=== PATIENT | female | born 1985 | race Caucasian/White ===

== ENCOUNTER 2020-02-24 04:27 | Observation (INO) | payer MEDICAID, SELFPAY ==
[2020-02-24] VITALS (13 sets, daily range): BP systolic 92–139; BP diastolic 57–98; PULSE 80–114; RESP 14–18; TEMP 36.7–37.9; O2SAT 95–100; BMI 22.1; BMI 23.1
--- NOTE | 2020-02-24 | APP_PTH ---
PATIENT: CHRISTEL REBOLLEDO LOC: PCU U#:[id number] AGE/SX: 34/F ROOM: [facility] RE02/24/[address]: Dr. Farida Bennett MD : 1985 BED: 1 DIS: 02/24/2020 SPEC #: [id number] RECD: 02/24/20 12:01 STATUS: APURVA REQ #: [id number] ENEDINA: 02/24/20 00:[address]: Farida Bennett DEPT: SURGICAL PATHOLOGY RECD BY: Sherman Mcdowell ENTERED: 02/25/20 12:22 SP TYPE: APPENDIX OTHR DR: Dr. Ashly Romero MD Tissues: Appendix, NOS Procedures: Surgery Specimen Level III HEADER OPERATION: Laparoscopic appendectomy PRE-OP DIAGNOSIS: Acute appendicitis TISSUE SUBMITTED: Appendix MICROSCOPIC DIAGNOSIS Appendix, appendectomy: Acute appendicitis and periappendicitis. TATYANA:justice 02/26/20 MICROSCOPIC DESCRIPTION Slides are reviewed. GROSS DESCRIPTION Received is one container labeled with the patient's name and designated appendix. The specimen consists of a disrupted appendix with attached periappendiceal adipose tissue measuring 8 cm in length and up to 1 cm in diameter. The tip of the appendix could not be identified. Two detached fragments of appendix are also noted each measuring 1 cm in length and 0.9 cm in diameter. The serosa is unremarkable. The lumen does not contain any fecalith. Nurse Practitioner Hospitalist sections are submitted in four cassettes as follows: 1 - possible tip, 2??detached portion of the appendix, 3 & 4 - rest of the appendix, appendix is submitted in entirety. / SJ:justice 02/25/20 TC:2 CPT: 80624
--- NOTE | 2020-02-24 04:34 | CT_ITS ---
STUDY: CT ABDOMEN AND PELVIS WITHOUT CONTRAST REASON FOR EXAM: Female, 34 years old. DIFFUSE ABD PAIN X 2 DAYS/VOMITING. Hx of csection x 4, tummy tuck. RADIATION DOSAGE (If Supplied By Facility): CTDIvol = ( 12.51 ) mGy, DLP = ( 571.46 ) mGycm TECHNIQUE: Transaxial images were obtained from the dome of the diaphragm to the symphysis pubis without oral contrast, and without intravenous contrast. Sagittal and coronal images were reconstructed. Individualized dose optimization techniques were used for this CT. COMPARISON: None. FINDINGS: The visualized lung bases are unremarkable. The visualized portions of the heart are within normal limits. There are breast implants. There is a small cyst in the left lobe of the liver.. Normal gallbladder and extrahepatic biliary system. Normal spleen. Normal pancreas. Normal bilateral adrenal glands. Normal right kidney. Normal left kidney. Normal visualized stomach. Normal small intestine. There is mild mural thickening of the cecum at the base of the appendix. Otherwise normal colon. The appendix is visualized on axial images 77-87. There is an appendicolith in the base of the appendix and the appendix is fluid distended, with diameter of 1.5 cm. There is mild periappendiceal fat infiltration, consistent with acute appendicitis. There is no demonstrated periappendiceal abscess or free intraperitoneal air to suggest appendiceal rupture. Normal abdominal aorta. Normal inferior vena cava. Normal retroperitoneum. Normal urinary bladder. There is either a very diminutive uterus or there has been a previous hysterectomy and there is a residual cervical stump. Normal abdominal wall. Normal osseous structures. CT/Abdomen/Pelvis W IV Cont ONLY IMPRESSION: Acute appendicitis. No evidence for appendiceal rupture. N.B. : The above information has been verbally conveyed by Wesley Gao MD to Dr. Fariha MD, on 02/24/2020 05:15:41 (ET). Electronically Signed: Wesley Gao MD at 5:19 EDT , Service support ,
--- NOTE | 2020-02-24 04:34 | ED.VIS.GI ---
History of Present Illness Chief Complaint: Abd Pain Informant: Patient - Abdominal Pain/Flank Pain Onset: Days - 2 Context: Gradual Onset Timing: Continuous Quality: Aching Location: RLQ - initially, now diffuse Current Severity: Severe Maximum Severity: Severe Worsened by: Nothing Relieved by: Nothing - Nausea/Vomiting/Emesis GI Symptom: Nausea, Vomiting Onset: Today Quality: Nonbilious. Negative for: Blood streaks, Coffee ground, Hematemesis - Diarrhea/Melena/Hematochezia GI Symptom: Diarrhea. Negative for: Melena, Hematochezia Onset: Yesterday Stool Quality: Loose Severity: Moderate Associated Symptoms: Negative for: Dysuria, Frequency, Hematuria, Urgency Narrative: Patient states when this pain started 2 days ago it was gradual in onset and mild. It has been constant and progressively worsening throughout the last day or 2, to the point of now being diffuse throughout her entire abdomen, and causing her to vomit. She states initially when it started, it felt like an ovarian discomfort, which she thinks because she has a history of endometriosis and polycystic ovarian disease. There was no sudden onset, and no sudden in the worsening of it. She states usually with her endometriosis, she had been able to take ibuprofen and bear it, she was doing that initially but it continued getting worse regardless. She had a prior hysterectomy, and has had multiple other abdominal surgeries, mostly COMPLIANCE ATTORNEY in nature, and a tummy tuck. None of them of been recent. She denies any fevers, dyspnea, chest pain, cough, urinary symptoms, vaginal discharge or bleeding. - Past Medical History (1) PCOS (polycystic ovarian syndrome) Status: Chronic (2) Endometriosis Status: Chronic Past Medical History - Allergies and Home Meds Allergies/Adverse Reactions: Allergies BLOOD THINNERS Allergy (Uncoded 02/24/20 04:32) Other CAVERNOUS ANGIOMAS Primary Care Physician: Ashly Romero MD [Primary Care Provider] - Surgical History: hysterectomy, - - c-sections, D&Cs, tummy tuck Lives: With Family Smoking Status: Never smoker Review of Systems General: Denies: Chills, Fever, Sweats Eyes: Denies: Visual changes - bilaterally, Diplopia ENT: Denies: Rhinorrhea, Sore throat Cardiovascular: Denies: Chest pain, Palpitations Respiratory: Denies: Dyspnea, Cough, Dyspnea on exertion Gastrointestinal: Reports: Abdominal pain, Nausea, Vomiting. Denies: Diarrhea, Melena, Hematochezia Genitourinary: Denies: Dysuria, Hematuria, Frequency Musculoskeletal: Denies: Back pain, Swelling, Extremity Pain Skin: Denies: Rash, Wounds Neurological: Denies: Headache, Weakness, Numbness Physical Exam Vital Signs/Narrative: Vital Signs Temp Pulse Resp BP Pulse Ox 02/24/20 04:28 98.1 F 100 16 139/98 H 100 Inital Vital Signs reviewed: Yes General: Well nourished, Well developed, Acute Distress - mild, painful. Negative for: Obese Head: Normocephalic, Atraumatic Eyes: Perrl, EOMI ENT: Moist mucous membranes, No rhinorrhea Neck: Supple, Nontender Cardiovascular: Regular rate, Regular rhythm, No murmurs, Tachycardia - mild Respiratory: No distress, CTA bilaterally, Chest nontender Abdomen: Soft, Nondistended, Normal bowel sounds, No masses, Tender - diffusely, nonfocal. Negative for: Guarding, Rebound tenderness, Pulsatile mass Back: Nontender, Normal Inspection. Negative for: CVA tenderness Extremities: Nontender, No edema. Negative for: Calf Tenderness Skin: Normal color, No rash, No Trauma Neurological: Alert, Oriented x3, Cranial nerves II-XII grossly intact, Normal Strength, Normal Sensation, Normal Gait Psychological: Normal affect, Normal Mood Diagnostic/Tx/Re-eval Laboratory Results 02/24/20 02/24/20 02/24/20 04:40 04:40 04:40 WBC 17.4 H RBC 4.31 Hgb 14.0 Hct 40.9 MCV 94.9 MCH 32.5 H MCHC 34.2 RDW Std Deviation 40.9 RDW Coeff of Shirley 11.7 Plt Count 308 MPV 9.8 Immature Gran % (Auto) 0.500 Neut % (Auto) 84.3 H Lymph % (Auto) 6.4 L Nash % (Auto) 8.3 Eos % (Auto) 0.2 Baso % (Auto) 0.3 Absolute Neuts (auto) 14.7 H Absolute Lymphs (auto) 1.12 Nucleated RBC % 0 Sodium 138 Potassium 3.1 L Chloride 106 Carbon Dioxide 24.0 Anion Gap 8 BUN 7 Creatinine 0.75 Estim Creat Clear Calc 85.78 Est GFR (MDRD) Af Amer 112 Est GFR (MDRD) Non-Af 93 BUN/Creatinine Ratio 9.3 L Glucose 123 H Calcium 8.9 Total Bilirubin 1.10 H AST 21 ALT 21 Alkaline Phosphatase 73 Total Protein 7.6 Albumin 4.2 Globulin 3.4 Albumin/Globulin Ratio 1.2 Lipase 127 Urine Color Yellow Urine Clarity Sl. Cloudy Urine pH 8.0 Ur Specific [place] 1.010 Urine Protein 30 H Urine Glucose (UA) Normal Urine Ketones 150 H Urine Occult Blood Negative Urine Nitrite Negative Urine Bilirubin Negative Urine Urobilinogen Normal Ur Leukocyte Esterase 25 H Urine RBC 0-5 SEEN Urine WBC 0-5 SEEN Ur Squamous Epith Cells 0 SEEN Urine Bacteria 1+ Urine Mucus 0 SEEN - Medical Decision Making Patient was given Zofran and morphine, as well as a dose of Toradol. She is doing much better on reevaluation. CT shows acute appendicitis with a 1.5 cm nonperforated appendix with appendicolith. She has an associated white blood count 17.5. Discussed with surgery Dr. Bennett, patient does not have peritoneal signs, and will be scheduled for surgery and admitted to medical surgical floor. Empiric Zosyn ordered and given in the emergency department. Patient is clinically and hemodynamically stable at admission. ED Disposition - Plan for ED Patient: Disposition: Acute Care [facility] Diagnosis: Acute appendicitis Referrals: Ashly Romero MD [Primary Care Provider] -
[2020-02-24] MEDS: Morphine 4 MG/ML Syringe IV (04:42)
[2020-02-24] MEDS: Ondansetron 4 MG/2 ML Vial IV (04:43)
[2020-02-24] MEDS: Ketorolac 30 MG/ML Syringe IV (04:43)
[2020-02-24] MEDS: 0.9% Normal Saline 1,000 ML 1000 ML IV (04:44)
[2020-02-24 04:55] LABS: Mucous, Urine 0 SEEN /hpf (<or=2+); Squamous Epithelial Cells - UA 0 SEEN /hpf (5-10)
[2020-02-24 04:58] LABS: Color, Urine Yellow (Yellow); Glucose, Dipstick Normal (Normal); Leukocyte Esterase-Dipstick 25 /ul (Negative); Nitrite-Dipstick Negative (Negative); Occult Blood-Urine Negative /ul (Negative); Protein-Dipstick 30 mg/dl (Negative); Urine Bilirubin Dipstick Negative (Negative); Urine Clarity Sl. Cloudy (Clear); Urine Urobilinogen Normal (Normal)
[2020-02-24 05:00] LABS: Absolute Lymphocyte Count 1.12 X10^3/uL (0.83-4.51); Absolute Neutrophil Count 14.7 X10^3/uL (2.0-7.7); Basophil# 0.05 X10^3/uL; Basophil% 0.3 % (0-1); Eosinophil# 0.03 X10^3/uL; Eosinophils% 0.2 % (0-5); Hematocrit 40.9 % (37-47); Lymphocyte # 1.12 X10^3/ul (4.0); Lymphocyte % 6.4 % (19-41); Mean Corp Hgb Conc 34.2 g/dL (32-36); Mean Corpuscular Hgb 32.5 pg (27.0-32.0); Mean Corpuscular Volume 94.9 fL (81-99); Mean Platelet Vol. 9.8 fl (6.2-12.0); Monocyte# 1.44 X10^3/uL; Monocyte% 8.3 % (0-10); NRBC Flagged by Analyzer 0 % (0-5); Neutrophil # 14.65 X10^3/uL (2.7-7.7); Neutrophil % 84.3 % (47-70); Platelet Count 308 K/mm3 (150-450); RBC Distribution Width CV 11.7 % (11.6-14.6); RBC Distribution Width SD 40.9 fl (35.1-43.9); Red Blood Count 4.31 M/mm3 (4.2-5.4); White Blood Count 17.4 K/mm3 (4.4-11.0)
[2020-02-24 05:13] LABS: Ketone-Dipstick 150 mg/dl (Negative)
[2020-02-24 05:15] LABS: Bacteria 1+ /hpf (None Seen); Red Blood Cells-Urine 0-5 SEEN /hpf (0-5); White Blood Cells 0-5 SEEN /hpf (0-5)
[2020-02-24 05:16] LABS: ALB/GLOB Ratio 1.2 RATIO (0.9-2.4); AST(SGOT) 21 U/L (15-37); Alanine Aminotransfer ALT/SGPT 21 U/L (13-56); Albumin, Serum 4.2 g/dL (3.2-5.0); Alkaline Phosphatase 73 U/L (45-117); Anion Gap 8 (5-15); BUN 7 mg/dL (7-18); BUN/Creat Ratio 9.3 RATIO (10-20); Calcium,Total 8.9 mg/dL (8.5-10.1); Chloride 106 mmol/L (98-107); Creatinine, Serum 0.75 mg/dL (0.55-1.02); EST Glomerular Filtration Rate 93 mL/min (>60); Est Glom Filt Rate - Afr Amer 112 mL/min (>60); Estimated Creatinine Clearance 85.78 ml/min; Globulin 3.4 g/dL (2.2-4.2); Glucose 123 mg/dL (74-106); Lipase 127 U/L (73-393); Potassium 3.1 mmol/L (3.5-5.1); Protein, Total 7.6 g/dL (6.4-8.2); Sodium Level 138 mmol/L (136-145)
[2020-02-24] MEDS: Lactated Ringers 1,000 ML 125 ML IV (06:51)
--- NOTE | 2020-02-24 07:29 | PCM.HP.BLA ---
History and Physical Date of Admission: 02/24/20 Chief Complaint: abdominal pain History of Present Illness: 34 y/o WF presents with abdominal pain for the past two days. Initially she noted this in the right lower quadrant but it has become more diffuse and generalized. Has had nausea and emesis. Has had some diarrhea. She thought it may have been gynecological, hx of endometriosis, and therefore tried to ignore it. Denies fevers. Evaluation in the ED - WBC 17.4K with left shift of differential CT scan - The appendix is visualized on axial images 77-87. There is an appendicolith in the base of the appendix and the appendix is fluid distended, with diameter of 1.5 cm. There is mild periappendiceal fat infiltration, consistent with acute appendicitis. There is no demonstrated periappendiceal abscess or free intraperitoneal air to suggest appendiceal rupture Past Medical History: endometriosis cavernous hemangiomas of cerebrum migraine headaches Past Surgical History: Tonsillectomy csections wisdom teeth surgery hysterectomy D&C umbilical hernia repair/tummy tuck bilateral breast augmentation Medications: eletriptan atarax claritin zofran prn paxil phenergan aldactone Allergies: cannot take blood thinners due to cavernous hemangiomas Social history: TOB use denies Review of Systems: General - denies fevers Cardiovascular denies chest pain, denies history of heart attack Pulmonary denies shortness of breath, denies coughing up blood Gastrointestinal as per HPI Neurological has migraine headaches, has known cavernous hemangiomas Genitourinary denies burning with urination, denies blood in urine Hematological denies spontaneous/prolonged bleeding Skin denies open non healing wounds Musculoskeletal denies history of fractures, denies arthritis Endocrine denies diabetes Psychological denies hallucinations Physical examination: Vital signs Temp 98.1F HR 100 BP 109/75 RR 16 General WD/WN WF in no apparent distress, alert and oriented, not septic appearing HEENT Normocephalic. EOM intact with sclera clear and no icterus noted. Neck is supple with no jugular venous distention noted. Trachea is midline. Lungs no labored breathing noted, such as retractions. No cough heard. Heart regular. Abdomen soft but tender in right lower quadrant with rebound. Extremities no calf tenderness noted. No pitting edema noted. Genitourinary/Rectal deferred Skin normal skin integrity. Neurological no focal deficits noted. Psychological normal affect, patient is calm and appropriate Impression: abdominal pain leukocytosis appendicitis by CT scan Discussion/Plan: I have discussed the above with the patient. I have offered the patient the procedure of laparoscopic appendectomy I have explained the procedure to the patient. I have counseled the patient as to the risks of the procedure, including but not limited to: infection, bleeding, injury to any blood vessels/nerves, scar tissue, injury to any intraabdominal organs, injury to kidney/ureters, injury to bowel/bladder,intraabdominal abscess/bleeding, hernias at incisional sites, wound infections, possible open procedure, complications of anesthesia, postoperative pneumonia/cardiac problems/blood clots etc. the patient understands. She wishes to proceed I have answered all questions to the patient?s satisfaction and the patient has no further questions.
[2020-02-24] MEDS: Potassium Chloride 10mEq/100mL 10 MEQ/100 ML IV.SOLN. 100 MEQ IV BOLUS ×2 (08:43→10:18)
[2020-02-24] MEDS: Morphine 2 MG/ML Syringe IV ×2 (08:55→13:27)
[2020-02-24] MEDS: 0.9% Saline Lock 10 ML Syringe IV ×2 (08:55→13:28)
--- NOTE | 2020-02-24 09:48 | NURSING ---
verbal report given to selin
--- NOTE | 2020-02-24 10:19 | DCINST_ITS ---
Discharge Diet: No Restrictions - avoid carbonated beverages for a couple of days Discharge Activity: Return to Normal Activity, May not drive while taking narcotic pain medications. Return to work on:: 03/10/20 Lifting Restrictions: no lifting greater than 10 pounds for two weeks Additional Activity Instructions:: walking/ambulation is encouraged. may climb stairs Call your doctor if your incision/area has: Continuous Slow Oozing, Foul Smelling Discharge Call your doctor if you observe: Fever of 101 or Higher Additional Dressing/Incision Instructions:: leave dressings in place. May get wet in shower. do not soak - no tub baths/swimming Additional Instructions: recommended pain medication regimen can take 650 mg acetaminophen (Tylenol) then in three to four hours can take 600 mg ibuprofen (Motrin), then in 3-4 hours can take 650 mg acetaminophen, then in three to four hours can take 600 mg ibuprofen and so on for 2-3 days take narcotic pain medication for pain not controlled with above and/or at night to help you sleep Medications to take at Discharge Ondansetron [Zofran Odt] 4 mg PO Q8H PRN PRN #10 tablet 08/06/16 Paroxetine HCl [Paxil] 10 mg PO DAILY 08/06/16 Spironolactone [Aldactone] 25 mg PO DAILY 08/06/16 HydrOXYzine [Atarax] 25 mg PO BID PRN PRN #12 tablet 08/07/16 proMETHazine tablet [Phenergan] 25 mg PO Q6H PRN PRN #10 tablet 08/07/16 Eletriptan Hydrobromide [Eletriptan HBr] 40 mg PO Q2H PRN PRN 02/24/20 Hydrocodone/Acetaminophen [[place] 5-325 Tablet] 1 ea PO Q8 PRN 4 Days #12 tab 02/24/20 Loratadine [Claritin] 10 mg PO DAILY PRN PRN 02/24/20 Allergies/Adverse Reactions: Allergies BLOOD THINNERS Allergy (Uncoded 02/24/20 10:09) Hx Cavernous Hemangiomas of cerebrum CAVERNOUS ANGIOMAS The following prescriptions were given: Hydrocodone/Acetaminophen [[place] 5-325 Tablet] 1 ea PO Q8 PRN 4 Days #12 tab PRN Reason: Pain Score 4-10/10 Transmission Status: Received by [facility] Primary Care Physician: Ashly Romero MD [Primary Care Provider] - Test Results: Test results from this visit will be discussed in further detail at your follow- up appointment, if applicable. Please Follow Up With: Farida Bennett MD - call When: will be set up by office for a telehealth visit
--- NOTE | 2020-02-24 10:29 | PCM.OPRPT ---
Report of Operation Date of Procedure: 02/24/20 Pre-Operative Diagnosis: acute appendicitis Post-Operative Diagnosis: same Surgery/Procedure Performed:: laparoscopic appendectomy Description of Surgical Findings:: dilated appendix - no ruptured, cloudy fluid in the pelvis - aspirated and irrigated out Type of Anesthesia:: General Anesthesiologist: Renny Weiss Specimen's removed: appendix Drains: none Estimated Blood Loss (mL): < 10 ml Fluids Replaced: 700 ml RL Description of Procedure: After informed consent was obtained, the patient was brought into the Operating Room. Appropriate time out protocol was followed. She was then placed in the supine position on the operating table. The patient was then placed under general anesthesia. The patient?s abdomen was then prepped with a sterile surgical skin preparation and sterile surgical drapes were placed. The infraumbilical skin fold was grasped with penetrating clamps and the skin and subcutaneous tissues were infiltrated with 0.25% marcaine with epinephrine. A skin incision was then made. A Veress needle was then inserted into the intraabdominal cavity and checked to be in the proper position with a normal saline drop test. A CO2 pneumoperitoneum was then created. Once this was achieved, the Veress needle was removed and a 5 mm trocar was placed in its stead. A 5 mm laparoscope was then inserted into the trocar. Careful examination of the intraabdominal contents was then done. There was no evidence of injury to any internal organs from placement of the Veress needle or the trocar. Under direct visualization, a 12mm suprapubic trocar and a 5mm just left of midline trocar was then placed into the intraabdominal cavity. The skin and subcutaneous tissues at these sites were first infiltrated with 0.25% marcaine with epinephrine. Attention was then directed to the right lower quadrant. The appendix was visualized. It was grossly distended and surrounding by inflammatory adhesions of omentum. This was taken down and by blunt dissection. There was no evidence of perforation, though there was cloudy peritoneal fluid. The mesentery of the appendix was taken down by cauterizing the tissue from the free edge to the base of the appendix with the Harmonic scalpel. Once the base of the appendix was freed of surrounding tissues, then the linear gastrointestinal stapling device was brought into the abdominal cavity via the 12mm port and placed across the base of the appendix. The stapling device was fired, thus stapling across the base of the appendix and transecting it simultaneously. The appendix was then placed in an Endobag and this was brought out through the suprapubic trocar. The appendix was then forwarded to Pathology for analysis. The appendiceal stump was carefully examined. There was slight oozing for which surgicel and pressure were applied. Then there was no evidence of any active bleeding or fecal leakage. The surrounding tissues were also examined and there was no evidence of any active bleeding or fecal/bile leakage. The peritoneal fluid was irrigated and aspirated out. The intraabdominal cavity was examined and there was no evidence of further inflammation or tissue abnormality. There was no evidence of any peritoneal fluid. The CO2 pneumoperitoneum was released and all trocars were removed intact. The suprapubic fascia was reapproximated with a figure-of-8 vicryl suture. All skin incisions were reapproximated with monocryl suture. Cavilon and steristrips were applied to reinforce skin closure and proper sterile dressings were placed. The patient was then extubated and brought to the Recovery Room in stable condition. - Complications none noted - Admit VTE Documentation VTE Present on Admission: Yes VTE Mechan Device Prophylaxis: SCD's
[2020-02-24] MEDS: Cefazolin 2 GM in 0.9% Normal Saline 100 ML IV (10:30)
[2020-02-24] MEDS: Bupiv/Epi 0.25% 30 ML Vial (11:28)
[2020-02-24] MEDS: HYDROcodone Bitartrate/Apap 5/325 Tablet PO (17:33)
--- NOTE | 2020-02-24 17:39 | NURSING ---
no changes noted to incision/dressing. voiding qs. teaching completed.
== END 2020-02-24 14:53 | disposition home or self-care (01) ==
LOC: ED 05:21 → PCU 07:15
PROVIDERS: Admitting Provider Surgery; Emergency Provider Emergency Medicine; PCP Internal Medicine; Visit Provider Surgery
PROC: 0DTJ4ZZ Resection of Appendix, Percutaneous Endoscopic Approach (ICD-10-PCS; CPT 44970; principal; 2020-02-24 09:55)
DX: K35.80 Unspecified acute appendicitis (principal); F41.9 Anxiety disorder, unspecified; F32.9 Major depressive disorder, single episode, unspecified; Z79.899 Other long term (current) drug therapy; E28.2 Polycystic ovarian syndrome; G43.909 Migraine, unspecified, not intractable, without status migrainosus
CPT/HCPCS: 44970; 74177; 80053; 81001; 83690; 85025; 88304; 96361; 96365; 96375; 99218; 99284; J7030; J7050; J7120; Q9967; A4216; G0378; J2405

== ENCOUNTER 2023-01-12 17:57 | Emergency (ER) | payer MEDICAID, SELFPAY ==
[2023-01-12 17:58] VITALS: BP 166/118; PULSE 118; RESP 16; TEMP 36.4; O2SAT 99; BMI 25.0
[2023-01-12 20:16] VITALS: BP 124/96; BP 133/91; BP 133/96; PULSE 100; PULSE 76; PULSE 89
--- NOTE | 2023-01-12 20:16 | EDS_ITS ---
HPI History of Present Illness Chief Complaint: Hypertension Narrative Narrative: 37-year-old female presenting with near syncopal event. She states that earlier today she thought she was going to blackout. She states he started seeing spots. She felt lightheaded. She felt palpitations and chest tightness. She states he has a history of anxiety but she does not feel she was that anxious. She does not have any cardiac history. No history of DVT/PE. She does not have any current risk factors. She states she does not have any concern for . Patient does states she has a long-term history blood pressure spikes.. She states has been going on for a year. Has been keeping a diary. Most of her blood pressure is normal. Today when she had the symptoms she decided to check her blood pressure and her blood pressure was in the 160s over 110 range. Patient states the second 1 she took was 150 systolic. Patient is not on any blood pressures controlled medicine. [facility] Medical History Cavernous angioma History of frequent headaches PCOS (polycystic ovarian syndrome) Home Medications ondansetron 4 mg disintegrating tablet 4 mg PO Q8H PRN PRN Nausea ##10 08/06/16 [Rx Last Taken Unknown] paroxetine HCl 10 mg tablet (Paxil) 10 mg PO DAILY depression 08/06/16 [History Last Taken Unknown] spironolactone 25 mg tablet 25 mg PO DAILY Check with primary doctor 08/06/16 [History Last Taken Unknown] Hydroxyzine [Atarax] 25 mg PO BID PRN PRN Anxiety ##12 08/07/16 [Rx Last Taken Unknown] promethazine 25 mg tablet 25 mg PO Q6H PRN PRN Nausea ##10 08/07/16 [Rx Last Taken Unknown] eletriptan 40 mg tablet 40 mg PO Q2H PRN PRN Migraine Symptoms 02/24/20 [History Last Taken 02/19/20 08:00] loratadine 10 mg capsule 10 mg PO DAILY PRN PRN Allergies 02/24/20 [History Last Taken Unknown] lorazepam 0.5 mg tablet 0.5 mg PO 07/13/21 [History Last Taken Unknown] Allergy/AdvReac Type Severity Reaction Status Date / Time BLOOD THINNERS Allergy Hx Uncoded 01/12/23 17:58 Cavernous Hemangiomas of cerebrum Family History Father Cavernous angioma Sister Cavernous angioma Anxiety Depression Brother Cavernous angioma Anxiety Depression Seizures Mother Hypertension Surgical History History of abdominoplasty History of appendectomy History of breast augmentation History of section History of dilation and curettage History of hysterectomy History of tonsillectomy Social History Smoking Status: Never smoker alcohol intake: current alcohol intake frequency: a few times a week Alcohol type: wine substance use type: does not use what type of physical activity do you participate in: running and yoga frequency: 3-4 times per week ROS ROS ED Constitutional Constitutional ED: Denies chills, fever(s) or sweats Eyes Eyes: Reports other Details: Spots in vision ; Denies blurry vision or change in vision ENT ENT ED: Denies ear pain or sore throat Cardiovascular Cardiovascular: Reports chest pain and palpitations; Denies racing heartbeat Respiratory/Chest Respiratory/Chest: Denies cough, dyspnea or sputum Gastrointestinal Gastrointestinal: Denies abdominal pain, constipation, diarrhea, nausea or vomiting Genitourinary Genitourinary ED: Denies dysuria, hematuria or urinary frequency Musculoskeletal Musculoskeletal: Denies arthralgias, myalgias or neck pain Integumentary Denies abscess, Abrasions or rash Neurologic Neurologic: Reports headache(s); Denies paresthesias or weakness Psychiatric Psychiatric: Denies anxiety, depression, suicidal ideation or suicidal thoughts Endocrine Endocrinology: Denies polydipsia or polyuria EXAM Physical Exam Const Vital Signs: 01/12/23 17:58 01/12/23 19:48 01/12/23 20:16 Temperature 97.6 F L Temperature Source Temporal Pulse Rate 118 H Pulse Rate [Lying] Pulse Rate [Sitting (for 1 minute prior to obtaining)] Pulse Rate [Standing (for 1 minute prior to obtaining)] Respiratory Rate 16 Respiratory Effort Normal Non-Labored Respiratory Pattern Normal Blood Pressure 166/118 H Blood Pressure [Lying] Blood Pressure [Sitting (for 1 minute prior to obtaining)] Blood Pressure [Standing (for 1 minute prior to obtaining)] Blood Pressure Mean 134 Blood Pressure Mean [Lying] Blood Pressure Mean [Sitting (for 1 minute prior to obtaining)] Blood Pressure Mean [Standing (for 1 minute prior to obtaining)] Pulse Ox 99 Oxygen Delivery Method Room Air Room Air 01/12/23 21:00 01/12/23 20:16 01/12/23 22:38 Temperature Temperature Source Pulse Rate 72 Pulse Rate [Lying] 76 Pulse Rate [Sitting (for 1 minute prior to obtaining)] 89 Pulse Rate [Standing (for 1 minute prior to obtaining)] 100 Respiratory Rate 21 H Respiratory Effort Respiratory Pattern Blood Pressure 134/96 H 124/96 H Blood Pressure [Lying] 133/91 H Blood Pressure [Sitting (for 1 minute prior to obtaining)] 133/96 H Blood Pressure [Standing (for 1 minute prior to obtaining)] 124/96 H Blood Pressure Mean 108 Blood Pressure Mean [Lying] 105 Blood Pressure Mean [Sitting (for 1 minute prior to obtaining)] 108 Blood Pressure Mean [Standing (for 1 minute prior to obtaining)] 105 Pulse Ox 98 Oxygen Delivery Method Room Air General Appearance ED: Negative for pallor HEENT Reports normocephalic, head/scalp atraumatic and moist mucous membranes Eyes PERRL and EOMs intact bilaterally Neck no lymphadenopathy and supple Chest Wall inspection of chest normal and palpation of chest normal Resp normal respiratory effort and clear to auscultation bilaterally Auscultation: Negative for rales, rhonchi or wheezes Cardio regular rate and regular rhythm GI normal to inspection, nondistended, normoactive bowel sounds and non-distended Auscultation: normoactive bowel sounds Palpation: soft Narrative: Deferred Extremity normal to inspection General Extremety ED: Negative for edema or tenderness General Extremity: Negative for edema Neuro oriented x3 and CN's II-XII intact bilaterally Sensorium / Orientation: alert Motor Exam: strength 5/5 throughout Psych mental status grossly normal Attitude: No agitated Skin no rashes or lesions noted and no wounds General Skin Exam: Negative for jaundice or pallor MDM MDM MDM Narrative Medical decision making narrative: Patient presenting with palpitations and chest tightness. She states she has a history of anxiety but was not feeling very anxious today. She states that she also felt as if her blood pressure was spiked. Initial blood pressure here was 166/118, however by the time I got to the room to examine her her blood pressure was 135/95. She feels well. Her physical exam is unremarkable. Because of her complaint of chest tightness I will obtain an EKG, chest x-ray as part of cardiac work-up. High-sensitivity troponin as well. Basic lab work including CBC to assess hemoglobin, white blood cell count, platelets, differential. BMP to assess renal function, electrolytes, glucose, anion gap. Orthostatic vital signs will be obtained. Differential at this point includes but is not limited to anxiety attack, dysrhythmia, pneumonia, ACS, hypertension. BC shows normal white blood cell count 8. Hemoglobin adequate stable. Platelets are normal. Renal function electrolytes within normal limits. High-sensitivity troponin is 6. Chest x-ray my interpretation shows no acute cardiopulmonary process. Radiologist services and agrees. Patient's blood pressure came down on its own to 124/96 without treatment. I recommended she keep a diary for this at home. She is to follow-up with her PCP to review the diary. I do not believe she needs to be treated here for her blood pressure. Impression: 1. Chest tightness 2. Palpitations 3. History of anxiety Lab Data Labs: Laboratory Results - last 24 hr 01/12/23 01/12/23 20:34 20:34 WBC 8.0 RBC 4.55 Hgb 14.5 Hct 43.1 MCV 94.7 MCH 31.9 MCHC 33.6 RDW Std Deviation 41.1 RDW Coeff of [place] 11.9 Plt Count 385 MPV 10.5 Immature Gran % (Auto) 0.200 Neut % (Auto) 72.8 H Lymph % (Auto) 20.2 [place] % (Auto) 6.0 Eos % (Auto) 0.4 Baso % (Auto) 0.4 Absolute Neuts (auto) 5.8 Absolute Lymphs (auto) 1.62 Nucleated RBC % 0 Sodium 138 Potassium 4.3 Chloride 108 H Carbon Dioxide 24.0 Anion Gap 6 BUN 9 Creatinine 0.69 Estim Creat Clear Calc 90.55 Est GFR (MDRD) Af Amer 122 Est GFR (MDRD) Non-Af 101 BUN/Creatinine Ratio 13.1 Glucose 94 Calcium 9.2 Troponin I High Sens 6 Radiography Diagnostic Testing: Clinical Impression(s) from Imaging Studies Chest X-Ray 01/12/23 20:40 IMPRESSION: No radiographic evidence of acute cardiopulmonary disease. Electronically Signed: Mart Lyn MD at 21:21 EST , Discharge Plan Triage Chief Complaint: Hypertension ED Provider: Marshall Oquendo Dx/Rx/DC Orders Instructions: ED Chest Pain, Noncardiac, ED Hypertension, To Be Confirmed Prescriptions: No Action lorazepam 0.5 mg tablet 0.5 mg PO Label Comments: take 1 tablet by mouth twice a day if needed paroxetine HCl [Paxil] 10 MG tablet 10 mg PO DAILY spironolactone 25 MG tablet 25 mg PO DAILY Label Comments: no longer taking ondansetron 4 MG tablet 4 mg PO Q8H PRN PRN (Reason: Nausea) Qty: 10 0RF Hydroxyzine [Atarax] 25 MG tablet 25 mg PO BID PRN PRN (Reason: Anxiety) Qty: 12 0RF promethazine 25 MG tablet 25 mg PO Q6H PRN PRN (Reason: Nausea) Qty: 10 0RF eletriptan 40 MG tablet 40 mg PO Q2H PRN PRN (Reason: Migraine Symptoms) loratadine 10 MG capsule 10 mg PO DAILY PRN PRN (Reason: Allergies) Primary Care Provider: Ashly Romero Referrals: Ashly Romero MD [Primary Care Provider] - Disposition Disposition: Home, Self Care Discharge Date/Time: 01/12/23 22:49
--- NOTE | 2023-01-12 20:16 | EKG12_ITS ---
Test Reason : Blood Pressure : / mmHG Vent. Rate : 078 BPM Atrial Rate : 078 BPM P-R Int : 138 ms QRS Dur : 090 ms QT Int : 386 ms P-R-T Axes : 051 -04 057 degrees QTc Int : 440 ms Normal sinus rhythm with sinus arrhythmia Normal ECG Confirmed by LANETTE FAULKNER, BHARGAVI ([id number]), health editor SHO FERNANDEZ ([id number]) on 01/16/2023 11:17:26 AM Referred By: Confirmed By:BHARGAVI GAMA MD
--- NOTE | 2023-01-12 20:40 | RAD_ITS ---
INDICATION: Chest pain EXAMINATION/TECHNIQUE: X-RAY - XR Chest 1 View COMPARISON: None. FINDINGS: LUNGS: No consolidation, edema or effusion. No pneumothorax. MEDIASTINUM AND CARDIOVASCULAR STRUCTURES: Cardiac silhouette not enlarged. Central airways and mediastinal contour are unremarkable. RAD/Chest 1 View (Portable) IMPRESSION: No radiographic evidence of acute cardiopulmonary disease. Electronically Signed: Mart Lyn MD at 21:21 EST ,
[2023-01-12 20:45] LABS: Absolute Lymphocyte Count 1.62 X10^3/uL (0.83-4.51); Absolute Neutrophil Count 5.8 X10^3/uL (2.0-7.7); Basophil# 0.03 X10^3/uL; Basophil% 0.4 % (0-1); Eosinophil# 0.03 X10^3/uL; Eosinophils% 0.4 % (0-5); Hematocrit 43.1 % (37-47); Hemoglobin 14.5 g/dL (12.0-15.0); Lymphocyte # 1.62 X10^3/ul (0.83-4.51); Lymphocyte % 20.2 % (19-41); Mean Corp Hgb Conc 33.6 g/dL (32-36); Mean Corpuscular Hgb 31.9 pg (27.0-32.0); Mean Corpuscular Volume 94.7 fL (81-99); Mean Platelet Vol. 10.5 fl (6.2-12.0); Monocyte# 0.48 X10^3/uL; NRBC Flagged by Analyzer 0 % (0-5); Neutrophil # 5.84 X10^3/uL (2.7-7.7); Neutrophil % 72.8 % (47-70); Platelet Count 385 K/mm3 (150-450); RBC Distribution Width CV 11.9 % (11.6-14.6); RBC Distribution Width SD 41.1 fl (35.1-43.9); Red Blood Count 4.55 M/mm3 (4.2-5.4)
[2023-01-12 21:00] VITALS: BP 134/96; PULSE 72; RESP 21; O2SAT 98
[2023-01-12 21:27] LABS: Anion Gap 6 (5-15); BUN 9 mg/dL (7-18); BUN/Creat Ratio 13.1 RATIO (10-20); Calcium,Total 9.2 mg/dL (8.5-10.1); Chloride 108 mmol/L (98-107); Creatinine, Serum 0.69 mg/dL (0.55-1.02); EST Glomerular Filtration Rate 101 mL/min (>60); Est Glom Filt Rate - Afr Amer 122 mL/min (>60); Estimated Creatinine Clearance 90.55 ml/min; Glucose 94 mg/dL (74-106); Potassium 4.3 mmol/L (3.5-5.1); Sodium Level 138 mmol/L (136-145); Troponin-I HS 6 pg/mL (3.0-54.0)
[2023-01-12 22:38] VITALS: BP 124/96
== END 2023-01-12 22:49 | disposition home or self-care (01) ==
PROVIDERS: Emergency Provider Student in an Organized Health Care Education/Training Program; PCP Internal Medicine; Visit Provider Student in an Organized Health Care Education/Training Program
DX: I10 Essential (primary) hypertension (principal); R07.89 Other chest pain; F41.9 Anxiety disorder, unspecified; R55 Syncope and collapse; R51.9 Headache, unspecified
CPT/HCPCS: 71045; 80048; 84484; 85025; 93005; 99284; A4216